=== PATIENT | female | born 1990 | race Caucasian/White ===

== ENCOUNTER → 2016-09-30 | Outpatient (CLI) | payer OTHER ==
--- NOTE | 2016-09-30 12:36 | MAMMOGRAPHY REPORT ---
ULTRASOUND OF RIGHT BREAST: 09/30/2016 CLINICAL HISTORY: The patient reports a new palpable right breast lump. She has a history of 2 mass es, one in each breast, which were biopsied approximately 5 years ago at an outside institution with pathology reportedly yielding fibroadenomas. COMPARISON: No prior exams were available for comparison. TECHNIQUE: Real-time targeted ultrasound of the right breast was performed. FINDINGS: Real time, high resolution targeted ultrasound was performed of the area of the new palpable lump po inted out by the patient, in the right breast at 8:00, approximately 3 cm from the nipple. At the s ite of the palpable lump there is an oval hypoechoic solid circumscribed parallel mass which measure s 2.3 x 0.8 x 1.9 cm. 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 The options of short interval follow-up ultrasound versus biopsy were discu ssed with the patient, and she prefers biopsy at this time. Therefore, recommend ultrasound-guided core needle biopsy for further evaluation. IMPRESSION: ACR BI-RADS CATEGORY 4A: LOW SUSPICION FOR MALIGNANCY - FOLLOW-UP RECOMMENDED Circumscribed 2.3 cm hypoechoic mass in the right breast at 8:00 at the site of the palpable lump, w hich is indeterminate and ultrasound-guided core needle biopsy is recommended for further evaluation . This likely represents a fibroadenoma. A phone call was made to the physician's office to confirm faxed results were received. The patient was verbally notified of the results. She tentatively scheduled the biopsy before that in the depa rtment. Angelica Chang M.D. ah/:09/30/2016 09:25:16 Regional Clinical Director: Hortensia GAONA(Mukesh)(Rizwana), [facility] letter sent: Abnormal 4/5 BI-RADS Code: ACR BI-RADS Category 4A: Low Suspicion For Malignancy
== END | disposition home or self-care (01) ==
LOC: C.MAMM 08:52
PROVIDERS: ATTEND Obstetrics & Gynecology
DX: N63 Unspecified lump in breast (principal)

== ENCOUNTER → 2016-10-13 | Outpatient (CLI) | payer OTHER ==
--- NOTE | 2016-10-13 09:37 | Discharge Instructions ---
Discharge Instructions Procedure Procedure Date: Oct 13, 2016. Reason for visit: Right Mass. Discharge Discharge Date: Oct 13, 2016. Discharge Diagnosis: status post breast biopsy Instructions Activity Recommendations: Additional Limitations (see below) Return to School/Work: no limitations Recommended Home Diet: No Limitations Provider Instructions: ACTIVITY RECOMMENDATIONS: * No lifting, pushing, pulling or exercising the affected side for three days. RETURN TO SCHOOL/WORK: * You may return to work/school after the procedure, but do not perform any strenuous activities for 24 to 48 hours. MEDICATIONS: * Tylenol (two 325 mg) every four to six hours if needed for mild pain (if not allergic to Tylenol). DIET: * Resume previous diet. SPECIAL CARE INSTRUCTIONS: * Keep biopsy site dry for 24 hours. May shower after 24 hours, but do not soak (bathe) incision. * May remove Tegaderm (plastic patch) tomorrow AFTER showering. * Leave the steri-strips on for one week. Allow the steri-strips to fall off by themselves. If not off after one week, you may remove them. You may place a Bandaid crosswise over the strips, if desired. * Apply ice 10 minutes on and 10 minutes off as needed. * Wear a bra at bedtime to sleep more comfortably for 2-3 days. * Your referring physician should have the results after approximately 5 to 7 business days. * Call for unusual bleeding, fever, drainage, etc or if you have any questions call during normal business hours or after hours call Dr Chang, . FOLLOW UP VISIT: Follow-up with Referring Physician as scheduled. Sena Marianoy Recommendations: Call your doctor if: * Temperature above 101 degrees * Pain not relieved by pain medicine ordered * There is increased drainage or redness from any incision * You have any unanswered questions or concerns. Your Doctors Instructions noted above were prepared by provider Angelica Chang. Patient Signature Section: Patient Instructions Signature Page Malgorzata Lewis Patient (or Guardian) Signature/Date: I have read and understand the instructions given to me by my caregivers. Caregiver/RN/Doctor Signature/Date: The above-named patient and/or guardian has received patient instructions on this date. + Original Patient Signature Page (only) stays with chart. Please make copy for patient.
--- NOTE | 2016-10-13 13:33 | MAMMOGRAPHY REPORT ---
ULTRASOUND GUIDED BIOPSY RIGHT BREAST: 10/13/2016 CLINICAL HISTORY: Right 8:00 breast mass. PATIENT CONSENT: The procedure, risks and benefits were discussed with the patient and informed writ ten consent was obtained. A timeout was performed immediately prior to the procedure. PROCEDURE DESCRIPTION: With ultrasound guidance, aseptic technique, and lidocaine as the local anest hetic (1% lidocaine to anesthetize the skin and 1% lidocaine with epinephrine to anesthetize the martín per tissues), the mass of concern in the right 8:00 breast was sampled 3 times with a 14-gauge Achie ve biopsy needle. Immediately thereafter, with ultrasound guidance, aseptic technique, and lidocain e as the local anesthetic, a metallic localizer clip was placed centrally in the mass. Direct press ure was applied to the site immediately post procedure and hemostasis was achieved. The patient erickson erated the procedure without complication. She was given wound care instructions. The specimens wer e sent to pathology for analysis. COMPARISON: Comparison is made to exam dated: 09/30/2016 ultrasound - [facility]. IMPRESSION: ULTRASOUND GUIDED BIOPSY Ultrasound-guided core needle biopsy of the right 8:00 breast mass, with clip placement. The patien t will receive pathology results from her referring physician. Angelica Chang M.D. /:10/13/2016 09:39:09 Chalk Tester: Hortensia MARIA)(Rizwana), [facility]
== END | disposition home or self-care (01) ==
LOC: C.MAMM 09:07
PROVIDERS: ATTEND Obstetrics & Gynecology
DX: N63 Unspecified lump in breast (principal); D24.1 Benign neoplasm of right breast

== ENCOUNTER 2017-09-05 15:32 | Emergency (ER) | payer OTHER ==
[~2017-09-05] VITALS: Ht 167.6 cm; Wt 59.9 kg
[2017-09-05 15:35] VITALS: Ht 167.6 cm; Wt 59.9 kg
[2017-09-05] MEDS ORDERED: RABIES VACCINE (IMOVAX) HUMAN DIPL CELL 2.5 INTER.UNIT/ML SYR IM. ONE (16:00)
[2017-09-05] MEDS ORDERED: RABIES IMMUNE GLOBULIN (HUMAN) 150 INTER.UNIT/ML 2 ML VIAL IM. ONE (16:00)
[2017-09-05] MEDS ORDERED: OMEG10007 PO (16:10)
[2017-09-05] MEDS ORDERED: MULT-240 PO (16:10)
[2017-09-05 17:00] VITALS: BP 117/74; PULSE 66; O2SAT 99
--- NOTE | 2017-09-06 07:05 | EMERGENCY ROOM VISIT NOTE ---
ED Visit Note First contact with patient: 15:36 Chief Complaint: Bat exposure. History of Present Illness: Ms. Lewis is a 27-year-old white female who ambulates into the ED complaining of a bat exposure. Patient reports she awoke this morning and found a bat flying around in her house. She was unsure the amount of time the bat was in residents. She reports she did do a body search and did not find any wounds. She did have family cat seen by a local vet who encouraged her to come the emergency department for rabies immunizations. Currently she has no complaints. Review of Systems: As noted above in history of present illness. Past Medical History: Status post surgical I&D of a throat abscess. Current Medications: Medications Dose Route/Sig Max Daily Dose Days Date Category Womens One Daily (Multiple Vitamins W/ Minerals) 1 Tab Tab 1 Tab PO DAILY 09/05/17 Rep[address] [place]-3 (Fish Oil) 1 Ea Cap 1 Cap PO DAILY 09/05/17 Reported Allergies to Medications: Patient denies. Social History: Patient is currently employed; she lives there and feels safe in her home environment; she denies tobacco use but admits to alcohol use. Tetanus Immunization Status: 2008. Physical Examination: Vital Signs: Date Time Temp Pulse Resp B/P (MAP) Pulse Ox O2 Delivery O2 Flow Rate FiO2 09/05/17 17:00 66 18 117/74 99 09/05/17 15:35 110 16 109/74 96 Room Air GENERAL: 27-year-old female in no acute distress, nontoxic-appearing, afebrile and hemodynamically stable. NEUROLOGICAL: Awake, alert and oriented to person, place and time. Answering questions appropriately and following commands. Normal gait. Good hand eye coordination. SKIN: Warm, dry and pink. No soft tissue eruptions or trauma noted. ED Course: Patient is assessed as noted above. Patient's medication list was reviewed. Patient received 1200 units of rabies immunoglobulin IM and 2.5 units of rabies vaccination IM. Patient was educated about today's findings and instructed on her treatment plan ; she verbalized understanding and agreement with this plan. Disposition: Patient discharged home in stable condition accompanied by male friend; prior to departure she was reassessed and subjectively reported that she was pain and symptom-free. Plan: Patient was educated on potential side effects of medications and rabies infections. Patient was given the remainder of his rabies immunization schedule. Patient was encouraged to return to the emergency department for any moderate or concerning symptoms related to his injections and to return for additional rabies immunizations.
== END 2017-09-05 17:00 | disposition home or self-care (01) ==
LOC: C.EDB 15:34 → C.EDD 17:00
DX: Z20.3 Contact with and (suspected) exposure to rabies (principal); Z23 Encounter for immunization; Z98.890 Other specified postprocedural states

== ENCOUNTER 2022-12-23 07:41 | Inpatient (IN) ==
[2022-12-23] MEDS ORDERED: LIDOCAINE 1% LOCAL 20 ML VIAL INFIL PRN (08:21)
[2022-12-23] MEDS ORDERED: DINOPROSTONE 10 MG INSERT PV ONE (08:21)
[2022-12-23] MEDS ORDERED: OXYTOCIN 30 UNITS/500 ML BAG IV PRN (08:21)
[2022-12-23] MEDS: ONDANSETRON 4 MG OD TAB PO PRN ×3 (08:55→19:45)
[2022-12-23 09:28] LABS: Hematocrit (blood only) 33.5 % (37.0-47.0); Hemoglobin 11.4 g/dl (12.0-16.0); Mean Corpuscular Hemoglobin 29.3 pg (25.0-34.0); Mean Corpuscular Volume 86.1 fL (80.0-100.0); Mean Platelet Volume 10.9 fL (9.4-12.4); Platelet Count 199 K/uL (130-400); RDW Coefficient of Variation 12.6 % (11.5-14.5); RDW Standard Deviation 39.1 fL (36.4-46.3); Red Blood Count 3.89 M/uL (4.20-5.40); White Blood Count 6.22 K/ul (4.8-10.8)
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
[2022-12-23] MEDS: LACTATED RINGER'S 1,000 ML IV PRN (17:34)
[2022-12-23] MEDS ORDERED: BUTORPHANOL TARTRATE 1 MG/ML VIAL IV PRN (18:18)
[2022-12-24] MEDS ORDERED: BUPIVACAINE 0.25% PF 30 ML VIAL ONE (01:32)
[2022-12-24] MEDS ORDERED: LIDOCAINE 2%/EPINEPHRINE 1:200,000 20 ML PF ONE (01:32)
[2022-12-24] MEDS ORDERED: SODIUM CHLORIDE 0.9% PF INJ 10 ML VIAL ONE (01:32)
[2022-12-24] MEDS ORDERED: fentaNYL citrate PF 100 MCG/2 ML VIAL ONE (01:32)
[2022-12-24] MEDS ORDERED: fentaNYL 2MCG/ML ROPIVACAINE 1.25MG/ML 100 ML BAG EPI ONE (01:33)
[2022-12-24] MEDS ORDERED: ePHEDrine sulfate 50 MG/ML AMP ONE (01:33)
[2022-12-24] MEDS ORDERED: NALOXONE HCL 0.4 MG/1 ML VIAL/CARP IV PRN (02:27)
[2022-12-24] MEDS ORDERED: NALOXONE HCL 1 MG in SODIUM CHLORIDE 0.9% 1000ML 1,000 ML IV PRN (02:27)
[2022-12-24] MEDS ORDERED: LIDOCAINE 2%/EPINEPHRINE 1:200,000 20 ML PF EPI STA (02:27)
[2022-12-24] MEDS ORDERED: fentaNYL 2MCG/ML ROPIVACAINE 1.25MG/ML 100 ML BAG EPI PRN (02:27)
[2022-12-24] MEDS ORDERED: ROPIVACAINE 0.5% PF 5 MG/ML 20 ML VIAL EPI PRN (02:27)
[2022-12-24] MEDS ORDERED: fentaNYL citrate PF 100 MCG/2 ML VIAL EPI STA (02:27)
[2022-12-24] MEDS ORDERED: LIDOCAINE 2% MPF LOCAL 5 ML VIAL EPI PRN (02:27)
[2022-12-24] MEDS ORDERED: fentaNYL citrate PF 100 MCG/2 ML VIAL EPI PRN (02:27)
[2022-12-24] MEDS ORDERED: diphenhydrAMINE 50 MG/ML VIAL IV PRN (02:27)
[2022-12-24] MEDS ORDERED: ePHEDrine sulfate 50 MG/ML AMP IV PRN (02:27)
[2022-12-24] MEDS ORDERED: SODIUM CHLORIDE 0.9% PF INJ 10 ML VIAL EPI STA (02:27)
[2022-12-24] MEDS ORDERED: BUPIVACAINE 0.25% PF 30 ML VIAL EPI PRN (02:27)
[2022-12-24] MEDS ORDERED: BUPIVACAINE 0.25% PF 30 ML VIAL EPI STA (02:27)
[2022-12-24] MEDS ORDERED: NALBUPHINE HCL INJ 10 MG/ML AMP IV PRN (02:27)
[2022-12-24] MEDS ORDERED: ONDANSETRON INJ 2 MG/ML 2 ML VIAL IV PRN (02:27)
[2022-12-24] MEDS ORDERED: SODIUM CHLORIDE 0.9% PF INJ 10 ML VIAL EPI PRN (02:27)
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
[2022-12-24] MEDS: LACTATED RINGER'S 1,000 ML IV PRN ×2 (02:37→07:18)
--- NOTE | 2022-12-24 03:15 | Labor Progress Brief Note ---
Date of Service December 24, 2022 Assessment & Plan Admission and Anticipated Discharge Date Admission Date: December 23, 2022 Physical Exam Genitourinary: Manual OB Exam: + cervical dilation 2 cm, + cervical effacement 70% and + station -2 OB Exam Monitor Tracing: + external FHT monitor used, + external uterine monitor used, + category I and + normal FHT variability epidural in place bedside ultrasound used to confirm position as vertex Results & Data Vital Signs (Past 12 Hours) Vital Signs Temp Pulse Resp BP Pulse Ox 12/24/22 03:08 96 H 100 12/24/22 03:03 103 H 93 12/24/22 03:04 113 H 140/64 12/24/22 03:02 113 H 92 12/24/22 02:59 112 H 127/73 12/24/22 02:58 108 H 98 12/24/22 02:53 99 H 97 12/24/22 02:48 114 H 98 12/24/22 02:47 130 H 102/65 12/24/22 02:45 112 H 108/69 12/24/22 02:43 96 12/24/22 02:43 117 H 12/24/22 02:43 121 H 110/75 12/24/22 02:41 96 H 112/75 12/24/22 02:38 94 H 98 12/24/22 02:33 118 H 95 12/24/22 02:28 82 95 12/24/22 02:27 80 94 12/24/22 02:23 73 95 12/24/22 02:21 82 94 12/24/22 02:18 70 95 12/24/22 02:13 81 95 12/24/22 02:14 76 94 12/24/22 02:08 79 94 12/24/22 02:09 79 92 12/24/22 02:03 85 99 12/24/22 02:00 78 93 12/24/22 01:58 79 94 12/24/22 01:53 72 97 12/24/22 01:52 79 94 12/24/22 01:48 80 99 12/23/22 23:59 18 12/23/22 23:59 36.8 C 18 12/23/22 23:58 78 12/23/22 23:58 132/78 12/23/22 22:29 75 05/04/23 22:29 131/75 12/23/22 19:17 18 12/23/22 19:17 36.8 C 18 12/23/22 19:17 80 12/23/22 19:17 122/66
--- NOTE | 2022-12-24 05:56 | Labor Progress Brief Note ---
Date of Service December 24, 2022 Assessment & Plan Admission and Anticipated Discharge Date Admission Date: December 23, 2022 Physical Exam Genitourinary: Manual OB Exam: + cervical dilation 10 cm, + cervical effacement 100% and + station 0 OB Exam Monitor Tracing: + external FHT monitor used, + external uterine monitor used, + category I and + normal FHT variability Results & Data Vital Signs (Past 12 Hours) Vital Signs Temp Pulse Resp BP Pulse Ox 12/24/22 05:53 75 94 12/24/22 05:48 86 96 12/24/22 05:43 97 H 97 12/24/22 05:38 94 12/24/22 05:38 76 12/24/22 05:38 80 94 12/24/22 05:33 91 H 96 12/24/22 05:30 76 94 12/24/22 05:28 77 18 94 12/24/22 05:23 73 95 12/24/22 05:21 85 112/69 12/24/22 05:18 98 H 96 12/24/22 05:13 84 95 12/24/22 05:12 75 94 12/24/22 05:08 74 94 12/24/22 05:07 74 94 12/24/22 05:03 76 94 12/24/22 05:04 70 106/61 12/24/22 05:01 73 94 12/24/22 04:58 71 94 12/24/22 04:55 72 94 12/24/22 04:53 76 95 12/24/22 04:49 70 94 12/24/22 04:50 69 100/58 L 12/24/22 04:48 83 96 12/24/22 04:43 74 95 12/24/22 04:44 77 94 12/24/22 04:38 82 96 12/24/22 04:36 77 94 12/24/22 04:34 75 103/55 L 12/24/22 04:33 81 94 12/24/22 04:31 76 94 12/24/22 04:28 75 95 12/24/22 04:23 94 12/24/22 04:23 77 05 04:23 77 94 12/24/22 04:20 82 111/62 12/24/22 04:18 76 94 12/24/22 04:15 78 94 12/24/22 04:13 86 95 05 04:10 80 94 05 04:08 76 94 05 04:04 71 94 05 04:05 71 105/59 L 0505 04:03 71 95 05 03:58 83 95 05 03:57 73 94 05 03:53 74 94 05 03:48 70 95 0505 03:49 70 105/58 L 94 05 03:43 74 95 0505 03:42 73 94 12/24/22 02:50 18 12/24/22 02:50 18 12/24/22 02:55 18 05 02:55 18 05 03:00 18 12/24/22 03:00 18 12/24/22 03:15 18 12/24/22 03:15 18 12/24/22 03:38 78 94 05 03:35 71 108/61 94 05 03:33 73 96 0505 03:30 74 18 94 05 03:28 71 96 0505 03:23 76 96 05 03:20 77 133/75 05 03:18 75 100 05 03:13 101 H 100 05 03:08 96 H 100 12/24/22 03:03 103 H 93 05 03:04 113 H 140/64 05 03:02 113 H 92 05 02:59 112 H 127/73 0505 02:58 108 H 98 0505 02:53 99 H 97 05 02:48 114 H 98 0505 02:47 130 H 102/65 0505 02:45 36.8 C 112 H 18 108/69 0505 02:43 96 0505 02:43 117 H 05 02:43 121 H 110/75 0505 02:41 96 H 112/75 0505 02:38 94 H 98 0505 02:33 118 H 95 0505/23 02:28 82 95 05/05/23 02:27 80 94 12/24/22 02:23 73 95 12/24/22 02:21 82 94 12/24/22 02:18 70 95 12/24/22 02:13 81 95 12/24/22 02:14 76 94 12/24/22 02:08 79 94 12/24/22 02:09 79 92 12/24/22 02:03 85 99 12/24/22 02:00 78 93 12/24/22 01:58 79 94 12/24/22 01:53 72 97 12/24/22 01:52 79 94 12/24/22 01:48 80 99 12/23/22 23:59 18 12/23/22 23:59 36.8 C 18 12/23/22 23:58 78 05 23:58 132/78 12/23/22 22:29 75 12/23/22 22:29 131/75 12/23/22 19:17 18 12/23/22 19:17 36.8 C 18 12/23/22 19:17 80 12/23/22 19:17 122/66
[2022-12-24] MEDS ORDERED: OXYTOCIN 30 UNITS/500 ML BAG IV PRN ×2 (08:27→11:04)
--- NOTE | 2022-12-24 09:36 | Obstetrical Progress Note ---
Date of Service December 24, 2022 Assessment & Plan Admission and Anticipated Discharge Date Admission Date: December 23, 2022 Subjective Patient is seen and examined I got sign out from Dr Camarena Reviewed her records and confirmed with her She has been laboring down since this morning FHR categ I VE; head at +3 station She is comfortable, no pain but feels pressure Plan to start pushing and continue to monitor Results & Data Vital Signs (Past 12 Hours) Vital Signs Temp Pulse Resp BP Pulse Ox 12/24/22 09:33 117 H 95 12/24/22 09:29 90 89 L 12/24/22 09:28 93 H 97 12/24/22 09:23 97 H 94 12/24/22 09:20 112 H 135/87 12/24/22 09:18 84 85 L 12/24/22 09:13 67 99 12/24/22 09:08 62 100 12/24/22 09:06 67 93 12/24/22 09:05 65 121/78 12/24/22 09:03 81 99 12/24/22 08:58 69 98 12/24/22 08:53 76 98 12/24/22 08:50 73 103/62 12/24/22 08:48 78 97 12/24/22 08:46 83 94 12/24/22 08:43 64 94 12/24/22 08:41 92 H 93 12/24/22 08:38 69 94 12/24/22 08:35 67 113/72 12/24/22 08:33 72 97 12/24/22 08:31 68 93 12/24/22 08:28 65 97 12/24/22 08:23 67 98 12/24/22 08:20 68 91 12/24/22 08:18 66 97 12/24/22 08:19 66 120/70 12/24/22 08:13 75 98 12/24/22 08:08 78 99 12/24/22 08:03 78 99 12/24/22 08:04 82 110/76 12/24/22 07:58 71 98 12/24/22 07:53 72 98 12/24/22 07:48 86 97 12/24/22 07:49 85 113/72 12/24/22 07:43 76 97 12/24/22 07:38 74 98 12/24/22 07:34 77 110/69 05/05/23 07:33 70 99 05/05/23 07:28 98 H 99 05/05/23 07:23 78 99 05/05/23 07:18 75 99 05/05/23 07:19 105 H 103/71 05/05/23 07:13 79 100 05/05/23 07:08 98 H 100 05/05/23 07:04 93 H 119/73 05/05/23 07:03 101 H 98 05/05/23 06:58 75 97 05/05/23 06:53 71 97 05/05/23 06:49 67 107/66 05/05/23 06:48 75 99 05/05/23 06:43 79 99 05/05/23 06:38 82 100 05/05/23 06:33 83 98 05/05/23 06:34 78 105/68 05/05/23 06:28 95 H 99 05/05/23 06:23 86 100 05/05/23 06:18 82 99 05/05/23 06:13 75 98 05/05/23 06:08 80 98 05/05/23 06:05 85 113/82 05/05/23 06:03 85 97 05/05/23 06:02 37.1 C 95 H 18 112/76 05/05/23 05:58 101 H 97 05/05/23 05:53 75 94 05/05/23 05:48 86 96 05/05/23 05:43 97 H 97 05/05/23 05:38 94 05/05/23 05:38 76 05/05/23 05:38 80 94 05/05/23 05:33 91 H 96 05/05/23 05:30 76 94 05/05/23 05:28 77 18 94 05/05/23 05:23 73 95 05/05/23 05:21 85 112/69 05/05/23 05:18 98 H 96 05/05/23 05:13 84 95 05/05/23 05:12 75 94 05/05/23 05:08 74 94 05/05/23 05:07 74 94 05/05/23 05:03 76 94 05/05/23 05:04 70 106/61 05/05/23 05:01 73 94 05/05/23 04:58 71 94 05/05/23 04:55 72 94 05/05 04:53 76 95 05/05 04:49 70 94 0505 04:50 69 100/58 L 0505 04:48 83 96 0505 04:43 74 95 05/05 04:44 77 94 0505 04:38 82 96 0505 04:36 77 94 0505 04:34 75 103/55 L 0505 04:33 81 94 0505 04:31 76 94 05/05 04:28 75 95 05/05 04:23 94 05/05 04:23 77 05/05 04:23 77 94 0505 04:20 82 111/62 0505 04:18 76 94 0505 04:15 78 94 0505 04:13 86 95 0505 04:10 80 94 0505 04:08 76 94 0505 04:04 71 94 0505 04:05 71 105/59 L 0505 04:03 71 95 05/05 03:58 83 95 05/05 03:57 73 94 05/05 03:53 74 94 05/05 03:48 70 95 0505 03:49 70 105/58 L 94 0505 03:43 74 95 0505 03:42 73 94 0505 02:50 18 0505 02:50 18 0505 02:55 18 05/05 02:55 18 05/05 03:00 18 05/05 03:00 18 05/05 03:15 18 05/05 03:15 18 05/05 03:38 78 94 05/05 03:35 71 108/61 94 05/05/ 03:33 73 96 05/05/ 03:30 74 18 94 05/05 03:28 71 96 05/05/ 03:23 76 96 05/05/ 03:20 77 133/75 05/05/ 03:18 75 100 05/05 03:13 101 H 100 05/05 03:08 96 H 100 12/24/22 03:03 103 H 93 05 03:04 113 H 140/64 05 03:02 113 H 92 12/24/22 02:59 112 H 127/73 05 02:58 108 H 98 12/24/22 02:53 99 H 97 12/24/22 02:48 114 H 98 12/24/22 02:47 130 H 102/65 05 02:45 36.8 C 112 H 18 108/69 05 02:43 96 12/24/22 02:43 117 H 12/24/22 02:43 121 H 110/75 12/24/22 02:41 96 H 112/75 12/24/22 02:38 94 H 98 05 02:33 118 H 95 12/24/22 02:28 82 95 12/24/22 02:27 80 94 05 02:23 73 95 05 02:21 82 94 12/24/22 02:18 70 95 05 02:13 81 95 05 02:14 76 94 05 02:08 79 94 05 02:09 79 92 05 02:03 85 99 05 02:00 78 93 05 01:58 79 94 05 01:53 72 97 12/24/22 01:52 79 94 05 01:48 80 99 05 23:59 18 05 23:59 36.8 C 18 05 23:58 78 0504 23:58 132/78 05 22:29 75 05 22:29 131/75
[2022-12-24] MEDS ORDERED: MINERAL OIL 30 ML UDC ONE ×2 (10:02→11:50)
[2022-12-24] MEDS ORDERED: HYDROCORTISONE ACETATE 25 MG SUPP PR PRN (11:04)
[2022-12-24] MEDS ORDERED: MEASLES, MUMPS & RUBELLA VIRUS VIAL SQ ONE (11:04)
[2022-12-24] MEDS ORDERED: oxyCODONE/ACETAMINOPHEN 5mg/325mg TAB PO PRN (11:04)
[2022-12-24] MEDS ORDERED: IBUPROFEN 600 MG TAB PO PRN (11:04)
[2022-12-24] MEDS ORDERED: bisacodyL 10 MG SUPP PR PRN (11:04)
[2022-12-24] MEDS ORDERED: DIPHTHERIA/TETANUS/PERTUSSIS 0.5mL SYR/VIAL (Age 7+yrs) IM ONE (11:04)
[2022-12-24] MEDS ORDERED: BENZOCAINE 20% AER SPR 82.5 GM CAN EXT PRN (11:04)
--- NOTE | 2022-12-24 11:15 | Delivery Summary ---
Vaginal Delivery Summary Date of Service December 24, 2022 Vaginal Delivery Summary Patient was found to be fully dilated and desire to push. She pushed for about an hour and delivered the head without difficulty. The shoulders were delivered with minimal traction and baby was handed off to the mother that her mouth and nose were suctioned and the cord was clamped times and cut at 1 minute delay. The baby was moving and crying vigorously. Then the cord blood was obtained. The vagina and perineum were checked for lacerations there was a small second-degree laceration at 7 o'clock position at the hymen. It was repaired with 2-0 Vicryl in a running fashion. It was hemostatic. The rest of the vagina and labia were intact. The placenta was found to be the vagina, delivered spontaneously as intact and complete. Uterus was explored and found to be empty, the lower segment was luis manuel ared of all clots and debris's, fundus was firm and EBL was 250 mL. Mom and baby tolerated procedure well. Sponge needle instrument count was correct x2. Baby was a viable female infant Apgars 8/9 and weight is pending. No complications happened and I was present during whole procedure.
--- NOTE | 2022-12-24 13:04 | Anesthesia Procedure Note ---
Date of Service December 24, 2022 Anesthesia Post Epidural Note Vital Signs Vital Signs: Temp Pulse Resp BP Pulse Ox 36.5 C 109 H 20 108/61 92 12/24/22 09:15 12/24/22 12:49 12/24/22 09:15 12/24/22 12:49 12/24/22 10:39 Notes Mental Status: alert / awake / arousable and participated in evaluation Nausea / Vomiting: adequately controlled Pain: adequately controlled Airway Patency, RR, SpO2: stable & adequate BP & HR: stable & adequate Hydration State: stable & adequate Neuraxial Anesthesia: was administered and sensory block is resolving Anesthetic Complications: no major complications apparent and Pt Satisfied with anesthetic care Epidural: Removed without complications and With tip intact
[2022-12-24] MEDS: DOCUSATE SODIUM 100 MG CAP PO SCH (20:29)
[2022-12-25 06:47] LABS: Hematocrit (blood only) 29.3 % (37.0-47.0); Hemoglobin 9.8 g/dl (12.0-16.0); Mean Corpuscular Hemoglobin 29.8 pg (25.0-34.0); Mean Corpuscular Hgb Conc 33.4 g/dL (32.0-36.0); Mean Corpuscular Volume 89.1 fL (80.0-100.0); Mean Platelet Volume 10.7 fL (9.4-12.4); Platelet Count 161 K/uL (130-400); RDW Coefficient of Variation 12.6 % (11.5-14.5); RDW Standard Deviation 40.9 fL (36.4-46.3); Red Blood Count 3.29 M/uL (4.20-5.40); White Blood Count 8.84 K/ul (4.8-10.8)
[2022-12-25] MEDS: ACETAMINOPHEN 325 MG TAB PO PRN ×3 (07:19→19:16)
[2022-12-25] MEDS: DOCUSATE SODIUM 100 MG CAP PO SCH ×2 (08:50→20:54)
[2022-12-25] MEDS: PRENATAL VITAMIN 1 TAB PO SCH (08:50)
[2022-12-25] MEDS: FERROUS SULFATE 325 MG TAB PO SCH (08:50)
--- NOTE | 2022-12-25 09:29 | Obstetrical Progress Note ---
Date of Service December 25, 2022 Assessment & Plan (1) Normal course: Continue routine care Anticipate discharge home tomorrow Subjective Ambulation: ambulating normally Voiding: no voiding problems Passing Gas:: Yes Diet Tolerance:: regular diet Lochia:: Moderate Feeding Type:: breast feeding Current Pain Level(1-10): 2 Doing well at this time, no complaints Results & Data Vital Signs (Past 12 Hours) Vital Signs Temp Pulse Resp BP Pulse Ox O2 Del Method 12/25/22 07:14 36.8 C 72 18 121/80 12/25/22 03:15 36.4 C L 69 16 118/77 96 Room Air 12/24/22 22:15 36.4 C L 71 18 118/77 97 Room Air
[2022-12-25] MEDS ORDERED: bisacodyL 5 MG TABEC PO SCH (20:00)
[2022-12-26] MEDS: ACETAMINOPHEN 325 MG TAB PO PRN (04:21)
[2022-12-26 07:10] LABS: Hematocrit (blood only) 31.4 % (37.0-47.0); Hemoglobin 10.6 g/dl (12.0-16.0)
[2022-12-26] MEDS: FERROUS SULFATE 325 MG TAB PO SCH (07:59)
[2022-12-26] MEDS: DOCUSATE SODIUM 100 MG CAP PO SCH (07:59)
[2022-12-26] MEDS: PRENATAL VITAMIN 1 TAB PO SCH (07:59)
--- NOTE | 2022-12-26 08:23 | Obstetrical Progress Note ---
Date of Service December 26, 2022 Assessment & Plan (1) Normal course: We will discharge home today, with discharge instructions and follow-up in clinic Prescriptions sent to pharmacy, alternate ibuprofen and Tylenol Subjective Ambulation: ambulating normally Voiding: no voiding problems Passing Gas:: Yes Diet Tolerance:: regular diet Lochia:: Small Feeding Type:: breast feeding Current Pain Level(1-10): 0 Doing well, no complaints, wants to go home today Physical Exam Constitutional WD/WN, vitals as above Respiratory normal respiratory effort, lungs clear to auscultation Cardiovascular RRR, no murmur, no edema Gastrointestinal (Abdomen) normal bowel sounds, soft, nontender, no hepatosplenomegaly Results & Data Vital Signs (Past 12 Hours) Vital Signs Temp Pulse Resp BP Pulse Ox O2 Del Method 12/25/22 22:54 36.5 C 76 18 118/72 95 Room Air Laboratory Results Laboratory Results WBC 8.84 K/ul (4.8-10.8) 12/25/22 05:45 RBC 3.29 M/uL (4.20-5.40) L 12/25/22 05:45 Hgb 10.6 g/dl (12.0-16.0) L 12/26/22 06:53 Hct 31.4 % (37.0-47.0) L 12/26/22 06:53 MCV 89.1 fL (80.0-100.0) 12/25/22 05:45 MCH 29.8 pg (25.0-34.0) 12/25/22 05:45 MCHC 33.4 g/dL (32.0-36.0) 12/25/22 05:45 RDW Std Deviation 40.9 fL (36.4-46.3) 12/25/22 05:45 RDW Coeff of Tina 12.6 % (11.5-14.5) 12/25/22 05:45 Plt Count 161 K/uL (130-400) 12/25/22 05:45 MPV 10.7 fL (9.4-12.4) 12/25/22 05:45 SARS-CoV-2, RNA, NAAT NEGATIVE (NEGATIVE) 12/23/22 Unknown
== END 2022-12-26 10:20 | disposition home or self-care (01) | DRG 807 ==
LOC: 4S1 07:41 → 4E2 12-24 13:41